=== PATIENT | female | born 1995 | race Caucasian/White ===

== ENCOUNTER 2016-10-29 18:05 | Emergency (ER) | payer OTHER ==
[~2016-10-29 18:05] MED LIST: TYLENOL
[2016-10-29] MEDS ORDERED: ONDANSETRON (ODT) 4 MG TAB ODT STA (19:48)
[2016-10-29] MEDS ORDERED: HYDROCODONE/APAP (5/325) TAB PO ONE (20:00)
[2016-10-29] MEDS ORDERED: FAMOTIDINE 20 MG TAB PO ONE (20:00)
[2016-10-29] MEDS ORDERED: LIDOCAINE/MYLANTA 40 ML BTL PO ONE (20:00)
[2016-10-29] MEDS ORDERED: FAMO-18 PO (21:08)
[2016-10-29] MEDS ORDERED: ONDA4TAB8 PO (21:09)
[2016-10-29 21:19] VITALS: BP 139/78; PULSE 85; RESP 18; TEMP 98.4
--- NOTE | 2016-10-29 23:30 | ERD ---
ER Documentation Chief Complaint Date/Time DATE: 10/29/16 TIME: 23:27 Chief Complaint Epigastric pain HPI This is a 21-year-old female presents to the ER with epigastric pain that started today after she had orange juice. Abdominal pain is described as burning in quality. It is nonradiating. Patient has not tried anything for the pain. Patient states that since then she has had 5 episodes of nonbilious nonbloody vomiting. She denies any diarrhea. Patient denies any fevers or chills. Patient already had her gallbladder taken out in 2011 and she denies any alcohol use. Patient denies any chest pain or shortness of breath. She denies any cough or cold symptoms. Patient has had normal bowel movements, no history of constipation. ROS 12 point review of systems was done, all negative except per HPI. Medications Home Meds Active Scripts Ondansetron Hcl* (Zofran*) 4 Mg Tablet, 4 MG PO Q6H for NAUSEA AND/OR VOMITING, #30 TAB Prov:ARCELIA PRICE 10/29/16 Famotidine* (Pepcid*) 20 Mg Tablet, 20 MG PO BID for 4 Days, TAB Prov:ALBERTARCELIA C 10/29/16 Reported Medications [Tylenol] No Conflict Check 10/02/11 Allergies Allergies: Coded Allergies: No Known Allergy (Unverified , 11/12/11) PMhx/Soc Medical and Surgical Hx: pt denies Medical Hx History of Surgery: Yes (appendix) Anesthesia Reaction: No Hx Neurological Disorder: No Hx Respiratory Disorders: No Hx Cardiac Disorders: No Hx Psychiatric Problems: No Hx Miscellaneous Medical Probl: No Hx Alcohol Use: No Hx Substance Use: No Hx Tobacco Use: No Physical Exam Vitals Vital Signs Date Time Temp Pulse Resp B/P Pulse Ox O2 Delivery O2 Flow Rate FiO2 10/29/16 21:19 98.4 85 18 139/78 97 Room Air Physical Exam GENERAL: The patient is well developed and appropriate for usual state of health , in no apparent distress. HEENT: Atraumati CHEST: Clear to auscultation bilaterally. There are no rales, wheezes or rhonchi. HEART: Regular rate and rhythm. No murmurs, clicks, rubs or gallops. ABDOMEN: Soft, nontender and nondistended. Good bowel sounds. No rebound or guarding. No gross peritonitis. No gross organomegaly or masses. No Recinos sign or McBurney point tenderness. NEURO: Alert and oriented. Results 24 hrs Current Medications Medications (Trade) Dose Ordered Sig/Robert Route PRN Reason Start Time Stop Time Status Last Admin Dose Admin Famotidine (Pepcid) 20 mg ONCE ONCE PO 10/29/16 20:00 10/29/16 20:01 DC 10/29/16 20:20 Ondansetron HCl (Zofran Odt) 4 mg ONCE STAT ODT 10/29/16 19:48 10/29/16 19:51 DC 10/29/16 20:20 Miscellaneous Medication (Gi Cocktail (2)) 40 ml ONCE ONCE PO 10/29/16 20:00 10/29/16 20:01 DC 10/29/16 20:20 Acetaminophen/ Hydrocodone Bitart ([place] (5/325)) 1 tab ONCE ONCE PO 10/29/16 20:00 10/29/16 20:01 DC 10/29/16 20:20 Procedures/MDM Differential Diagnosis: GERD, gastritis, peptic ulcer disease, pancreatitis, cholecystitis, choledocholithiasis, biliary colic, cholangitis, [id number]-[id number] , ACS/[place], Pnuemonia. This is likely GERD. Patient felt significantly better after voiding GI cocktail in the ER. Suspicion for gallbladder disease as well as patient's, rales or anything taken. Suspicion for pancreatitis is low as patient's gallbladder has been taken out and she has denied any alcohol use. Patient is afebrile and well-appearing. She does not appear to be dehydrated. Patient will be sent home with famotidine and Zofran. She is to follow-up with her primary care doctor within 1-2 days and return to ER sooner if symptoms worsen. Medical decision making was shared with the patient's she understands and agrees with plan Departure Diagnosis: Primary Impression: Nausea and vomiting Additional Impression: Epigastric pain Condition: Stable Patient Instructions: Nausea and Vomiting-Adult, Epigastric Pain (Uncertain Cause) Additional Instructions: Call your primary care doctor TOMORROW for an appointment during the next 1-2 days.See the doctor sooner or return here if your condition worsens before your appointment time. ARCELIA PRICE Oct 29, 2016 23:30
== END 2016-10-29 21:19 | disposition home or self-care (01) ==
LOC: FTE 18:05
DX: R11.2 Nausea with vomiting, unspecified (principal)
CPT/HCPCS: Z7502; Z7610; 99283

== ENCOUNTER 2016-10-31 19:19 | Emergency (ER) | payer OTHER ==
[~2016-10-31] VITALS: Ht 162.6 cm; Wt 138.0 kg
[~2016-10-31 19:19] MED LIST changes: +FAMO-18 PO; +ONDA4TAB8 PO
[2016-10-31 19:41] VITALS: Ht 162.6 cm; Wt 138.0 kg
[2016-10-31] MEDS ORDERED: morphine 4 MG/ML VIAL IV STA (20:59)
[2016-10-31] MEDS ORDERED: ACETAMINOPHEN 500 MG TAB PO STA (20:59)
[2016-10-31] MEDS ORDERED: KETOROLAC 30 MG INJ IV STA (20:59)
[2016-10-31] MEDS ORDERED: SODIUM CHLORIDE 0.9% 1L BAG IV* STA (20:59)
[2016-10-31] MEDS ORDERED: ONDANSETRON 4 MG INJ IV STA (20:59)
[2016-10-31] MEDS ORDERED: CEFTRIAXONE 1 GM/50 ML (PMX) 50 ML IVPB ONE (21:30)
--- NOTE | 2016-10-31 21:55 | RADRPT ---
PROCEDURE: US Abdomen. CLINICAL INDICATION: Abdominal pain. History of cholecystectomy. TECHNIQUE: Multiple real-time images were acquired of the patient's right upper quadrant utilizing a high resolution transducer. The images were reviewed on a high-resolution PACS workstation. COMPARISON: None FINDINGS: Exam is technically limited. The liver demonstrates increased echogenicity and size and no focal le sions are seen. The liver measures 19.4 cm in size. The gallbladder is not identified. No intrahepat ic biliary dilatation is seen. The common bile duct measures 4 mm in maximal dimension. The visual ized portions of the pancreas are unremarkable. No free fluid is identified. The right kidney is of normal size, and demonstrate normal echogenicity and morphology. The right k idney measures 11.4 x 4.6 x 6.9 cm. There are is no dilatation of the right collecting system. The re are no perinephric fluid collections. There are no areas of increased echogenicity to suggest ne phrolithiasis. IMPRESSION: 1. Mild hepatomegaly with fatty infiltration of the liver. 2. Gallbladder not visualized consistent with the clinical history of a prior cholecystectomy. RPTAT: HPNM Physician Evert Date Time Electronically viewed and signed by Physician Evert on 10/31/2016 21:55 /
--- NOTE | 2016-10-31 22:05 | ERD ---
ER Documentation Chief Complaint Date/Time DATE: 10/31/16 Chief Complaint Epigastric abdominal pain, constipation HPI The patient is a 21-year-old female who presents to the Emergency Department with complaint of epigastric abdominal pain and constipation for the past three days. The patient reports that her symptoms began after drinking orange juice. The pain is describes as burning in nature, localized to the epigastric region of the abdomen, with no radiation of pain. She has not yet tried any medication for pain relief. The patient notes several episodes of associated nausea, and nonbilious, nonbloody emesis since onset of her pain, though she has not had any diarrhea. No black or bloody stools. The patient does note that she has not had a bowel movement in the past three days, though she has had very minimal oral intake, as she notes that her pain worsens after any food. She has continued to pass flatus. The patient is s/p cholecystectomy, though her current symptoms feel somewhat similar. She denies any alcohol use. Denies any vaginal bleeding or new vaginal discharge. Denies chest pain, palpitations, shortness of breath. Denies recent URI-type symptoms. Denies any known fevers or chills. ROS All systems reviewed and are negative except as per history of present illness. Medications Home Meds Active Scripts Cephalexin* (Keflex*) 500 Mg Capsule, 500 MG PO QID for 7 Days, CAP Prov:MILIND PONCE PA-C 10/31/16 Docusate Sodium* (Colace*) 100 Mg Capsule, 100 MG PO BID, #30 CAP Prov:MILIND PONCE PA-C 10/31/16 Polyethylene Glycol* (Miralax*) 17 Gm Powd.pack, 17 GM PO DAILY, #7 Prov:MILIND PONCE PA-C 10/31/16 Ondansetron Hcl* (Zofran*) 4 Mg Tablet, 4 MG PO Q6H for NAUSEA AND/OR VOMITING, #30 TAB Prov:ALBERTARCELIA HEWITT 10/29/16 Famotidine* (Pepcid*) 20 Mg Tablet, 20 MG PO BID for 4 Days, TAB Prov:ALBERTARCELIA HEWITT 10/29/16 Reported Medications [Tylenol] No Conflict Check 10/02/11 Allergies Allergies: Coded Allergies: No Known Allergy (Unverified , 11/12/11) PMhx/Soc History of Surgery: Yes (appendix) Anesthesia Reaction: No Hx Neurological Disorder: No Hx Respiratory Disorders: No Hx Cardiac Disorders: No Hx Psychiatric Problems: No Hx Miscellaneous Medical Probl: No Hx Alcohol Use: No Hx Substance Use: No Hx Tobacco Use: No Physical Exam Vitals Vital Signs Date Time Temp Pulse Resp B/P Pulse Ox O2 Delivery O2 Flow Rate FiO2 11/01/16 00:45 97.8 78 18 115/78 100 Room Air 10/31/16 22:15 98.9 97 18 131/81 96 Room Air 10/31/16 19:41 101.2 118 20 56/80 97 Physical Exam GENERAL: Well-developed, well-nourished, in no acute distress HEENT: Head is normocephalic, atraumatic. No scleral pallor or icterus. Pupils equal, round and reactive to light. Conjunctiva pink. Moist mucous membranes. NECK: Supple. Full range of motion. RESPIRATORY: Lungs are clear to auscultation bilaterally. Equal breath sounds. Normal expiratory effort. CARDIOVASCULAR: Regular rate and rhythm. S1 and S2 normal. No murmurs, rubs, or gallops. GASTROINTESTINAL: Abdomen is soft and nondistended. Corpulent. Minimal tenderness to palpation over the epigastric region of the abdomen. No right upper quadrant tenderness. Negative Recinos's sign. No guarding, no rebound tenderness. Normal bowel sounds. No gross peritonitis. No tenderness at McBurney's point. FLANK: No CVA tenderness, no mass or swelling. BACK: No midline tenderness. EXTREMITIES: No clubbing, cyanosis, or edema. Normal skin perfusion. Moving all extremities. Muscle tone is normal. No focal swelling or erythema. Distal pulses are palpable, 2+ bilaterally. Capillary refill is less than 2 seconds. NEUROLOGIC: The patient is alert, awake, and oriented x 3. Speech is normal. INTEGUMENT: Skin is clean, dry and intact. No rashes, lesions or petechiae present. PSYCHIATRIC: Appropriate; Cooperative Result Diagram: 10/31/16214910/31/162149 Results 24 hrs Laboratory Tests Test 10/31/16 21:50 Activated Partial Thromboplast Time 31.2Sec Alanine Aminotransferase (ALT/SGPT) 33IU/L Albumin 4.4g/dl Albumin/Globulin Ratio 0.84 Alkaline Phosphatase 71IU/L Anion Gap 18 Aspartate Amino Transf (AST/SGOT) 25IU/L Basophils # 0.010^3/ul Basophils % 0.2% Blood Morphology Comment Blood Urea Nitrogen 7mg/dl Calcium Level 9.6mg/dl Carbon Dioxide Level 28mmol/L Chloride Level 99mmol/L Creatinine 0.75mg/dl Direct Bilirubin 0.00mg/dl Eosinophils # 0.010^3/ul Eosinophils % 0.0% Globulin 5.20g/dl Glucose Level 96mg/dl Hematocrit 39.6% Hemoglobin 13.3g/dl INR International Normalized Ratio 1.13 Indirect Bilirubin 0.4mg/dl Lactic Acid Level 1.1mmol/L Lipase 55U/L Lymphocytes # 2.510^3/ul Lymphocytes % 18.8% Mean Corpuscular Hemoglobin 28.3pg Mean Corpuscular Hemoglobin Concent 33.7g/dl Mean Corpuscular Volume 83.9fl Mean Platelet Volume 8.7fl Monocytes # 1.510^3/ul Monocytes % 11.1% Neutrophils # 9.410^3/ul Neutrophils % 69.9% Nucleated Red Blood Cells # 0.010^3/ul Nucleated Red Blood Cells % 0.0/100WBC Platelet Count 63585^3/UL Potassium Level 4.4mmol/L Prothrombin Time 14.5Sec Prothrombin Time Ratio 1.1 Red Blood Count 4.7210^6/ul Red Cell Distribution Width 14.6% Sodium Level 141mmol/L Total Bilirubin 0.4mg/dl Total Protein 9.6g/dl Urine Bacteria MODERATE Urine Bilirubin NEGATIVE Urine Clarity CLOUDY Urine Color YELLOW Urine Glucose NEGATIVE% Urine Hemoglobin NEGATIVE Urine Ketones NEGATIVE Urine Leukocyte Esterase NEGATIVE Urine Microscopic RBC 0-2/HPF Urine Microscopic WBC 0-2/HPF Urine Nitrite POSITIVE Urine Specific [place] 1.015 Urine Squamous Epithelial Cells MANY Urine Total Protein 1+ Urine Urobilinogen 0.2 E.U./dL Urine pH 7.5 White Blood Count 13.410^3/ul Current Medications Medications (Trade) Dose Ordered Sig/Robert Route PRN Reason Start Time Stop Time Status Last Admin Dose Admin Sodium Chloride (NS) 4,280 ml BOLUS OVER 2 HOURS STAT IV* 10/31/16 20:59 10/31/16 21:02 DC 10/31/16 22:18 Acetaminophen (Tylenol Tab) 1,000 mg ONCE STAT PO 10/31/16 20:59 10/31/16 21:03 DC 10/31/16 22:17 Morphine Sulfate (morphine) 4 mg ONCE STAT IV 10/31/16 20:59 10/31/16 21:03 DC 10/31/16 22:18 Ondansetron HCl (Zofran Inj) 4 mg ONCE STAT IV 10/31/16 20:59 10/31/16 21:03 DC 10/31/16 22:17 Ketorolac Tromethamine 30 mg 30 mg ONCE STAT IV 10/31/16 20:59 10/31/16 21:03 DC 10/31/16 22:17 Ceftriaxone Sodium (Rocephin) 50 ml @ 100 mls/hr ONCE ONCE IVPB 10/31/16 21:30 10/31/16 21:59 DC 10/31/16 22:18 Procedures/MDM DIAGNOSTIC TESTS AND INTERPRETATION: PROCEDURE: US Abdomen. CLINICAL INDICATION: Abdominal pain. History of cholecystectomy. TECHNIQUE: Multiple real-time images were acquired of the patient's right upper quadrant utilizing a high resolution transducer. The images were reviewed on a high-resolution PACS workstation. COMPARISON: None FINDINGS: Exam is technically limited. The liver demonstrates increased echogenicity and size and no focal lesions are seen. The liver measures 19.4 cm in size. The gallbladder is not identified. No intrahepatic biliary dilatation is seen. The common bile duct measures 4 mm in maximal dimension. The visualized portions of the pancreas are unremarkable. No free fluid is identified. The right kidney is of normal size, and demonstrate normal echogenicity and morphology. The right kidney measures 11.4 x 4.6 x 6.9 cm. There are is no dilatation of the right collecting system. There are no perinephric fluid collections. There are no areas of increased echogenicity to suggest nephrolithiasis. IMPRESSION: 1. Mild hepatomegaly with fatty infiltration of the liver. 2. Gallbladder not visualized consistent with the clinical history of a prior cholecystectomy. Physician Evert Date Time Electronically viewed and signed by Mo Edwards Physician on 10/31/2016 21 :55 EMERGENCY DEPARTMENT COURSE: The patient was stable throughout the ED course. IV access established by nursing staff. Fluids were administered. Morphine, Zofran, and Toradol given for pain relief and antiemetic effect. Tylenol administered as well, given presence of fever. Laboratory work and ultrasound imaging was performed. On reevaluation, the patient was resting comfortably, and reports significant relief if symptoms. She has had no vomiting while in the ED, and no further nausea at this time. She notes no current abdominal pain or discomfort. Discussed that at this time, there is no clear cause of the patient's epigastric abdominal pain. Urinalysis did note positive nitrites , indicating likely urinary tract infection, though uncertain if this is the cause of the patient's fevers/abdominal pain. Additionally, the patient has not had a bowel movement in the past 2 days. Discussed advanced imaging/CT imaging with the patient. Shared decision making was held. Risks and benefits discussed. The patient notes that as she is not currently experiencing any abdominal discomfort, no abdominal distention, no current nausea/vomiting, she declines CT imaging at this time, as she believes the risk of radiation exposure to be too great. The patient requests a trial for medications (to treat urinary tract infection and constipation), and if her symptoms do not improve she will return to the ED for further evaluation and management. MEDICAL DECISION MAKING: This is a 21-year-old female presenting to the Emergency Department with complaint of epigastric abdominal pain, nausea, vomiting and constipation for 3 days, that began after drinking orange juice. On physical examination, the patient had tenderness to palpation over the epigastric region of the abdomen. She was febrile and tachycardic, and therefore given fluids, Tylenol and Toradol. Otherwise, no tachypnea, no signs of respiratory distress. Differential diagnosis includes, but is not limited to , gastroenteritis, gastritis, cholecystitis, cholangitis, choledocholithiasis, pancreatitis, perforated viscus, mesenteric ischemia, GERD, PUD, urinary tract infection, pyelonephritis, hepatitis, infectious diarrhea, IBD, torsion, bowel obstruction, appendicitis, diverticulitis. Ultrasound imaging notes that patient is s/p cholecystectomy with no biliary or CBD dilatation. Laboratory analysis did reveal a leukocytosis of 13.4, though this may be secondary to stress reaction from recent vomiting. Otherwise, no significant anemia or electrolyte abnormalities noted. No elevated bilirubin or transaminitis. BUN and creatinine are normal, no prerenal azotemia or acute kidney injury. Lactic acid 1.1, and no evidence of severe sepsis/septic shock. Urinalysis did reveal positive nitrites, concerning for possibly urinary tract infection. Rocephin administered. After rest and administration of fluids and medications, the patient reports no new complaints and much decreased pain and symptoms. Upon review and interpretation of the patient's presentation and overall ER course, I believe the patient's symptoms are most consistent with epigastric abdominal pain, urinary tract infection and constipation. I doubt cholecystitis , choledocholithiasis, cholangitis, no abnormalities or indication of disease process noted on ultrasound, negative Recinos's sign, normal bilirubin, no jaundice, no transaminitis. Doubt pancreatitis - clinical presentation inconsistent, lipase normal. Doubt perforated ulcer, patient has a non- surgical abdomen. Doubt small bowel obstruction, patient is passing flatus, abdomen is non-distended. Doubt appendicitis, patient has no McBurney's point tenderness, no guarding, non-surgical abdomen, no tenderness over the RLQ. Doubt diverticulitis, exam inconsistent. Doubt ischemic bowel, no pain out of proportion to examination. Doubt torsion, symptoms and examination inconsistent. At this time, the patient is in stable condition with stable vital signs and therefore can be discharged home with prescriptions for Keflex, Docusate and Miralax, and strict return precautions for signs of deteriorating or worsening condition. Repeat abdominal examination has improved, with no discomfort noted on examination. Shared decision making held with the patient regarding CT imaging. The patient declines CT imaging, due to age, risk of radiation exposure, and no current discomfort at this time. She is advised to follow up with her primary care provider in 1-2 days for reevaluation and further management, or return to the ER sooner for any new or worsening symptoms. I shared my medical decision making, plan, as well as the results with the patient at length and in great detail, and she verbally understands and agrees with the plan for further observation and care as an outpatient. At the time of discharge, all questions were answered. Departure Diagnosis: Primary Impression: Acute cystitis without hematuria Additional Impressions: Epigastric abdominal pain Constipation Constipation type: unspecified constipation type Qualified Code: K59.00 - Constipation, unspecified constipation type Condition: Stable Patient Instructions: Constipation (Adult), Epigastric Pain (Uncertain Cause), Treating Constipation, Urinary Tract Infections in Women Additional Instructions: Call your primary care doctor TOMORROW for an appointment during the next 1-2 days.See the doctor sooner or return here if your condition worsens before your appointment time. If your constipation does not improve with the medication, please seek further evaluation and management. MILIND PONCE PA-C Oct 31, 2016 22:05 MILIND PONCE PA-C Oct 31, 2016 22:05
[2016-10-31 22:26] LABS: ADD UMIC YES; URINE BILIRUBIN (Dip) NEGATIVE (NEGATIVE); URINE BLOOD (Dip) NEGATIVE (NEGATIVE); URINE COLOR YELLOW (YELLOW); URINE GLUCOSE (Dip) NEGATIVE (NEGATIVE); URINE KETONES (Dip) NEGATIVE (NEGATIVE); URINE LEUKOCYTE ESTERASE (Dip) NEGATIVE (NEGATIVE); URINE NITRITE (Dip) POSITIVE (NEGATIVE); URINE TOTAL PROTEIN (Dip) 1+ (NEGATIVE); URINE UROBILINOGEN (Dip) 0.2 E.U./dL (0.1-1.0)
[2016-10-31 22:33] LABS: ALBUMIN 4.4 g/dl (3.3-4.9)
[2016-10-31 22:34] LABS: POTASSIUM 4.4 mmol/L (3.5-5.1)
[2016-10-31 22:36] LABS: ALBUMIN/GLOBULIN RATIO 0.84; BILIRUBIN,INDIRECT 0.4 mg/dl (0-1.1); BILIRUBIN,TOTAL 0.4 mg/dl (0.2-1.3); CREATININE 0.75 mg/dl (0.44-1.00); TOTAL PROTEIN 9.6 g/dl (6.1-8.1)
[2016-10-31 22:37] LABS: CALCIUM 9.6 mg/dl (8.4-10.2)
[2016-10-31 22:45] LABS: INR 1.13; PROTIME 14.5 Sec (12.2-14.2); PT RATIO 1.1
[2016-10-31 22:46] LABS: PARTIAL THROMBOPLASTIN TIME 31.2 Sec (25.0-35.0)
[2016-10-31 23:04] LABS: BASOPHILS % 0.2 % (0.0-2.0); HEMATOCRIT 39.6 % (37.0-47.0); HEMOGLOBIN 13.3 g/dl (12.0-16.0); LYMPHOCYTES # 2.5 10^3/ul (0.8-2.9); LYMPHOCYTES % 18.8 % (15.0-51.0); MEAN CORPUSCULAR HEMOGLOBIN 28.3 pg (29.0-33.0); MEAN CORPUSCULAR HGB CONC 33.7 g/dl (32.0-37.0); MEAN CORPUSCULAR VOLUME 83.9 fl (82.0-101.0); MEAN PLATELET VOLUME 8.7 fl (7.4-10.4); MONOCYTE # 1.5 10^3/ul (0.3-0.9); MONOCYTES % 11.1 % (0.0-11.0); NEUTROPHIL # 9.4 10^3/ul (1.6-7.5); NEUTROPHILS % 69.9 % (39.0-77.0); PLATELET COUNT 413 10^3/UL (140-440); RED BLOOD COUNT 4.72 10^6/ul (4.20-5.40); RED CELL DISTRIBUTION WIDTH 14.6 % (11.5-14.5); UNCORRECTED WBC 13.4 10^3/ul (4.8-10.8); WHITE BLOOD COUNT 13.4 10^3/ul (4.8-10.8)
[2016-10-31 23:08] LABS: CONDITION 1; LH ANALYZER COMMENTS 1
[2016-10-31] MEDS ORDERED: POLY17PO6 PO (23:15)
[2016-10-31] MEDS ORDERED: CEPH-443 PO (23:16)
[2016-10-31] MEDS ORDERED: DOCU-144 PO (23:16)
[2016-10-31 23:42] LABS: SQUAMOUS EPITHELIAL CELL,UR MANY; URINE RBCS 0-2 /HPF (0)
[2016-10-31 23:43] LABS: BACTERIA,URINE MODERATE
[2016-11-01 00:45] VITALS: BP 115/78; PULSE 78; RESP 18; TEMP 97.8
== END 2016-11-01 00:46 | disposition home or self-care (01) ==
LOC: FTE 19:19
DX: N30.00 Acute cystitis without hematuria (principal); R10.13 Epigastric pain
CPT/HCPCS: 36415; 76705; 80053; 81001; 83605; 83690; 85025; 85610; 85730; 87040; 87086; 96374; 96375; J0696; J1885; J2270; J2405; J7030; Z7502; Z7610; 81003